=== PATIENT | female | born 1990 | race Two or more races ===

== ENCOUNTER 2022-01-21 08:41 | Emergency (ER) | payer MEDICAID ==
[2022-01-21] MEDS ORDERED: Dexamethasone 10 MG/ML SDV IM STA (09:05)
[2022-01-21] MEDS ORDERED: Ibuprofen 600 MG Tab PO ONE (09:05)
== END 2022-01-21 11:32 | disposition home or self-care (01) ==
LOC: MW.ED 08:41
DX: S59.901A Unspecified injury of right elbow, initial encounter (principal); X50.1XXA Overexertion from prolonged static or awkward postures, initial encounter
CPT/HCPCS: 73080; 96372; 99283; A9270; J1100

== ENCOUNTER 2023-05-05 15:39 | Emergency (ER) | payer MEDICAID, OTHER ==
[2023-05-05 16:22] LABS: BASOPHILS ABSOLUTE AUTO 0.04 K/uL (0.00-0.20); BASOPHILS PERCENT AUTO 0.5 % (0.0-1.0); EOSINOPHILS ABSOLUTE AUTO 0.16 K/uL (0.00-0.45); HEMATOCRIT 41.9 % (37.0-47.0); HEMOGLOBIN 14.9 g/dL (12.0-16.0); IMMATURE GRAN ABSOLUTE AUTO 0.04 K/uL (0.00-0.05); IMMATURE GRAN PERCENT AUTO 0.5 % (0.0-0.4); LYMPHOCYTES ABSOLUTE AUTO 3.54 K/uL (1.00-4.80); LYMPHOCYTES PERCENT AUTO 44.8 % (24.0-44.0); MEAN CORPUSCULAR HEMOGLOBIN 32.7 pg (28.0-32.0); MEAN CORPUSCULAR HGB CONC 35.6 g/dL (32.0-36.0); MEAN CORPUSCULAR VOLUME 91.9 fL (83.0-99.0); MEAN PLATELET VOLUME 9.5 fL (9.4-12.3); MONOCYTES PERCENT AUTO 6.3 % (0.0-8.0); NEUTROPHILS ABSOLUTE AUTO 3.62 K/uL (1.80-7.70); NEUTROPHILS PERCENT AUTO 45.9 % (41.0-71.0); PLATELET COUNT,PLT 232 K/uL (150-400); RED BLOOD CELL COUNT 4.56 M/uL (4.10-5.30)
[2023-05-05 16:34] LABS: A/G RATIO 1.1 (0.9-1.6); ALBUMIN 4.1 g/dL (3.4-5.0); BILIRUBIN TOTAL 0.3 mg/dL (0.2-1.0); CALCIUM 9.1 mg/dL (8.5-10.1); CARBON DIOXIDE,CO2 23.9 mmol/L (21.0-32.0); CREATININE 0.9 mg/dL (0.6-1.0); EST CRCL DRUG DOSING (CG) 92.05 mL/min; POTASSIUM,K 3.8 mmol/L (3.5-5.1); PROTEIN TOTAL,TP 7.8 g/dL (6.4-8.2)
[2023-05-05] MEDS ORDERED: Ibuprofen 600 MG Tab PO ONE (17:23)
[2023-05-05] MEDS ORDERED: Diphtheria,Pertussis(Acell),Tetanus Vaccine 0.5 ML Syringe IM ONE (17:38)
== END 2023-05-05 17:55 | disposition home or self-care (01) ==
LOC: MW.ED 15:39
DX: S00.83XA Contusion of other part of head, initial encounter (principal); S80.211A Abrasion, right knee, initial encounter; V89.2XXA Person injured in unspecified motor-vehicle accident, traffic, initial encounter
CPT/HCPCS: 36415; 70450; 71045; 72125; 72170; 80053; 83690; 85025; 99284; A9270; 99283

== ENCOUNTER 2024-09-11 02:58 | Emergency (ER) | payer SELFPAY ==
[2024-09-11] MEDS: Ondansetron 4 MG Tab PO ONE (03:20)
== END 2024-09-11 04:12 ==
LOC: MW.ED 02:58
DX: F10.920 Alcohol use, unspecified with intoxication, uncomplicated (principal)
CPT/HCPCS: 99283; A9270; 99282